=== PATIENT | female | born 1995 | race Two or more races ===

== ENCOUNTER 2023-08-04 19:30 | Emergency (ER) | payer OTHER ==
[~2023-08-04] VITALS: Ht 167.6 cm; Wt 63.5 kg
[2023-08-04] MEDS ORDERED: hydrOXYzine PAMOATE 25 MG CAPSULE PO ONE (21:00)
[2023-08-04 21:26] LABS: HEMOGLOBIN 12.9 g/dL (12.0-15.00); MEAN CORPUSCULAR HEMOGLOBIN 29.2 pg (27.00-32.0); PLATELET COUNT 253 K/uL (150-450); RED BLOOD COUNT 4.43 M/uL (4.00-6.00); RED CELL DISTRIBUTION WIDTH 13.6 % (11.5-14.5)
[2023-08-04 21:55] LABS: CREATININE SERUM 0.79 mg/dL (0.55-1.02); GFR 87.3; POTASSIUM 3.91 mEq/L (3.5-5.1)
[2023-08-04 22:03] LABS: TSH 1.28 uIU/mL (0.358-3.74)
== END 2023-08-04 23:04 | disposition home or self-care (01) ==
LOC: ER 19:30
PROVIDERS: General Practice
DX: F41.0 Panic disorder [episodic paroxysmal anxiety] (principal)